=== PATIENT | female | born 1950 | race Native Hawaiian/Other Pacific Islander ===

== ENCOUNTER 2018-02-11 14:35 | Emergency (ER) | payer OTHER ==
[2018-02-11] MEDS ORDERED: FLUORESCEIN SODIUM 1 STRIP STRIP ONE (15:09)
[2018-02-11] MEDS ORDERED: HYDROCODONE/ACETAMINOPHEN 5/325 MG TAB ONE (15:25)
[2018-02-11] MEDS ORDERED: GENTAMICIN SULFATE 0.3% 5ML DROPS ONE (16:27)
== END 2018-02-11 16:48 | disposition home or self-care (01) ==
LOC: EDBD 14:35 → EDH 14:35
DX: S05.01XA Injury of conjunctiva and corneal abrasion without foreign body, right eye, initial encounter (principal); H11.31 Conjunctival hemorrhage, right eye; S05.11XA Contusion of eyeball and orbital tissues, right eye, initial encounter; S16.1XXA Strain of muscle, fascia and tendon at neck level, initial encounter; I10 Essential (primary) hypertension; E78.5 Hyperlipidemia, unspecified; E11.9 Type 2 diabetes mellitus without complications; E07.9 Disorder of thyroid, unspecified; Y04.0XXA Assault by unarmed brawl or fight, initial encounter; Y93.89 Activity, other specified; Y92.238 Other place in hospital as the place of occurrence of the external cause; Y99.8 Other external cause status
CPT/HCPCS: 70486